=== PATIENT | female | born 1975 | race Two or more races ===

== ENCOUNTER 2024-02-07 08:55 | Day surgery (SDC) | payer MEDICAID, SELFPAY ==
[2024-02-06 14:53] VITALS: BMI 45.5
[2024-02-07] VITALS (9 sets, daily range): BP systolic 128–158; BP diastolic 79–102; PULSE 62–75; RESP 13–20; TEMP 36.2–36.6; O2SAT 95–100; BMI 47.2
[2024-02-07] MEDS: DiphenhydrAMINE INJ 50 MG/ML VIAL 25 MG IV (10:15)
[2024-02-07] MEDS: fentaNYL CIT INJ 50 mCg/ML AMP 2ML (ASD USE ONLY) IV (10:21)
[2024-02-07] MEDS: MIDAZOLAM INJ 1 MG/ML VIAL 2 ML (ASD USE ONLY) 2 MG IV (10:21)
== END 2024-02-07 11:30 | disposition home or self-care (01) ==
PROVIDERS: PCP Physician Assistant; Referring Provider Surgery; Visit Provider Surgery
PROC: 0DBE8ZX Excision of Large Intestine, Via Natural or Artificial Opening Endoscopic, Diagnostic (ICD-10-PCS; CPT 45380; principal; 2024-02-07 12:15)
DX: K57.31 Diverticulosis of large intestine without perforation or abscess with bleeding (principal)
CPT/HCPCS: 45378; 81025; J1200; J2250; J3010

== ENCOUNTER 2024-02-20 10:16 | Outpatient (AMB) | payer MEDICAID, SELFPAY ==
[2024-02-20 10:24] VITALS: BP 108/73; PULSE 80; RESP 18; TEMP 36; O2SAT 97; BMI 45.1
--- NOTE | 2024-02-20 10:24 | GSCOFFNT_ITS ---
Vital Signs - [facility] 02/20/24 10:24 Height 1.42 m Height Method Stated Weight 91.342 kg Weight Measurement Method Standing Scale BMI 45.1 BP 108/73 Blood Pressure Source Automatic Cuff Blood Pressure Location Right Upper Arm Position Sitting Respiration 18 Pulse 80 Pulse Source Monitor Temp 96.8 F Temp Source Temporal Artery Scan Pulse Oximetry (%) 97 Oxygen Delivery Method Room Air Med/Allergies Allergies & Medications Allergies No Known Allergies Allergy (Verified 02/20/24 10:24) Medication Reconciliation albuterol sulfate 90 mcg/actuation aerosol inhaler 2 puff inhalation Q4H PRN Shortness Of Breath Or Wheezing 02/07/24 [History Confirmed 02/20/24] atorvastatin 40 mg tablet 40 mg PO QDAY 02/07/24 [History Confirmed 02/20/24] losartan 100 mg-hydrochlorothiazide 25 mg tablet 1 tab PO QDAY 02/07/24 [History Confirmed 02/20/24] metformin 1,000 mg tablet,extended release 24hr (osmotic) 1,000 mg PO BID 02/07/24 [History Confirmed 02/20/24] MA Intake Visit Data Collection New Patient or Established: Established Patient (seen at [facility] within 3 years) Seen by Clinical Staff ONLY (RN/MA): No Reason for Visit:: COLONOSCOPY RESULTS Pain Present Currently: No Licensed Pesticide Applicator Required: Yes PCP or OBGYN visit in last 3 months: Yes Smoking Status Smoking Status: Never smoker Immunization / Flu Flu Vaccine in the Last 12 Months: No Flu Vaccine Exclusion Criteria: Refused by Patient Past Medical History Past Medical History NEUROLOGIC: Negative Seizures, Epilepsy or Head Trauma CARDIAC: Positive Hypercholesterolemia and Hypertension; Negative Congestive Heart Failure RESPIRATORY: Positive Asthma; Negative Chronic Obstructive Pulmonary Disease (COPD) GENITOURINARY: Negative Renal Disease ENT: Negative Head Trauma ENDOCRINE: Positive Diabetes Mellitus Type 2; Negative Diabetes Mellitus Type 1 PSYCHO/SOCIAL: Positive Depression OTHER HISTORY: Positive Chicken Pox; Negative Blood Transfusions, Blood Transfusion Reaction or Anesthesia Reactions Family History FAMILY HISTORY: Negative Family Cancer Surgical History SURGICAL: Positive Tubal Ligation and Section Social History SMOKING STATUS: Smoking status: Never smoker ALCOHOL: Alcohol Intake: Never HPI HPI Narrative Spoke to pt with in-person certified court/medical interpreter 48F s/p diagnostic colonoscopy 02/06 here for planned follow up. Pt reports feeling well overall although having some bloating after eating ROS Review of Systems Systems Reviewed: All systems reviewed, normal except as documented Objective/Exam General General Appearance: alert, cooperative and well groomed Resp Respiratory exam: Absent respiratory distress Results Colonoscopy report reviewed: poor prep, diverticulosis Assessment & Plan Diagnosis / Problem List (1) Encounter to discuss colonoscopy results: Status: Acute Assessment & Plan: 48F s/p diagnostic colonoscopy 02/06 here for planned follow up. I explained that due to inadequate prep she should undergo repeat colonoscopy within 5 years, and she should follow up with her PCP regarding bloating Office Procedures GNS Level of Care Nursing/Assessment Patient Status: Established Patient Nursing Assessment/Reassesment: Medication Reconciliation, Update PMH in EMR and Vital Signs Coordination of Care: Complex Care and Chronic Disease 1-5, Education Complex Pt/Fam, 1 Ins Authorization and Staff clarify orders Special Needs: Language special needs Established Patient Charge Established Patient Point Assignment: 100 Established Patient Point Charge: EP Level 2 (40-75) Patient Portal Questionaires Social History Tobacco History Smoking Status: Never smoker Alcohol History Alcohol Intake: Never Review of Systems Report any current symptoms Only answer those that you have currently: Past Medical History Past Medical History Have you ever been diagnosed with any of the following: Neurological Problems Seizures: No Epilepsy: No Head Trauma: No Cardiology Problems Hypercholesterolemia: Yes Congestive Heart Failure: No Hypertension: Yes Respiratory Problems Chronic Obstructive Pulmonary Disease (COPD): No Asthma: Yes Genital/Urinary Problems Renal Disease: No Endocrine Problems Diabetes Mellitus Type 1: No Diabetes Mellitus Type 2: Yes Psychologic Problems Depression: Yes Other Problems Blood Transfusions: No Blood Transfusion Reaction: No Anesthesia Reactions: No Chicken Pox: Yes
== END 2024-02-20 10:37 | disposition home or self-care (01) ==
LOC: HODSRG 10:16
PROVIDERS: PCP Physician Assistant; Referring Provider Physician Assistant; Supervising Provider Surgery; Visit Provider Surgery
DX: Z71.2 Person consulting for explanation of examination or test findings (principal)
CPT/HCPCS: 99212; G0463

== ENCOUNTER → 2024-09-21 | Outpatient (CLI) | payer MEDICAID, SELFPAY ==
--- NOTE | 2024-09-21 11:04 | XR_ITS ---
Examination: Knee, left , 3 views Technique: Knee AP, lateral, oblique 3 views Date and time of exam: September 21, 2024 1105 hours INDICATIONS: Left knee pain months. FINDINGS: Moderate narrowing medial joint space Mild osteoarthritis patellofemoral joint No fracture No dislocation IMPRESSION: Osteoarthritis as above
== END | disposition home or self-care (01) ==
LOC: CDIM 10:23
DX: M17.12 Unilateral primary osteoarthritis, left knee (principal)
CPT/HCPCS: 73562

== ENCOUNTER → 2024-11-14 | Outpatient (CLI) | payer MEDICAID, SELFPAY ==
--- NOTE | 2024-11-14 15:02 | XR_ITS ---
EXAMINATION: Cervical spine, 5 views Technique: Cervical spine AP, AP odontoid, lateral, bilateral obliques, 5 views Exam date and time: November 14, 2024 1522 hours INDICATIONS: Neck pain beginning several years ago. FINDINGS: Straightening normal cervical lordosis. No cervical fracture No cervical significant disc narrowing Minimal cervical spondylosis IMPRESSION: No cervical fracture or significant arthritic change No neural foraminal stenosis
== END | disposition home or self-care (01) ==
LOC: CDIM 14:26
DX: M54.2 Cervicalgia (principal)
CPT/HCPCS: 72050

== ENCOUNTER 2024-12-14 09:04 | Outpatient (AMB) | payer MEDICAID, SELFPAY ==
[2024-12-14 09:39] VITALS: BP 144/85; PULSE 78; RESP 18; TEMP 36.6; O2SAT 96; BMI 42.8
--- NOTE | 2024-12-14 09:39 | PD.ORTHCLVIS ---
Vital signs 12/14/24 09:39 Height 1.42 m Height Method Measured Weight 86.438 kg Weight Measurement Method Standing Scale BMI 42.8 BP 144/85 H Blood Pressure Source Automatic Cuff Blood Pressure Location Left Upper Arm Position Sitting Respiration 18 Pulse 78 Pulse Source Monitor Temp 97.8 F Temp Source Temporal Artery Scan Pulse Oximetry (%) 96 Oxygen Delivery Method Room Air Med/Allergies Allergies & Medications Allergies No Known Allergies Allergy (Verified 12/14/24 09:40) Medication Reconciliation albuterol sulfate 90 mcg/actuation aerosol inhaler 2 puff inhalation Q4H PRN Shortness Of Breath Or Wheezing 02/07/24 [History Confirmed 12/14/24] atorvastatin 40 mg tablet 40 mg PO QDAY 02/07/24 [History Confirmed 12/14/24] losartan 100 mg-hydrochlorothiazide 25 mg tablet 1 tab PO QDAY 02/07/24 [History Confirmed 12/14/24] metformin 1,000 mg tablet,extended release 24hr (osmotic) 1,000 mg PO BID 02/07/24 [History Confirmed 12/14/24] meloxicam 7.5 mg tablet 7.5 mg PO QDAY #45 tabs 12/14/24 [Rx] Exam Exam Patient is in no acute distress and is cooperative with the examination today. Breathing is nonlabored. In no respiratory distress. Bilateral extremities were evaluated and demonstrates sensation intact to light touch. Palpable pedal pulses are present. No significant edema is present. Bilateral hips were examined. The patient has no pain with log roll of the hips. Internal rotation to 30 degrees and external rotation to 30 degrees is painless. Negative FADIR. The left knee was examined. The left knee is in varus alignment. Range of motion from 0-115 degrees. Knee is stable to varus and valgus as well as AP translation with <5mm. Patient has a negative McMurrays. There is no pain with patellofemoral compression and no crepitus noted. The knee is tender to palpation medially. The right knee was also examined. The right knee is in varus alignment. Range of motion from 0-120 degrees. Knee is stable to varus and valgus as well as AP translation with <5mm. Patient has a negative McMurrays. There is no pain with patellofemoral compression and no crepitus noted. The knee is tender to palpation medially. Nonweightbearing x-rays of the left knee demonstrates joint space narrowing medially and at least moderate arthritis Assessment and Plan Problem List (1) Degenerative arthritis of knee, bilateral: Status: Acute Plan: ASSESSMENT AND PLAN 1. Bilateral knee pain: Chronic pain is reported in both knees, with the left knee being more bothersome. Only ibuprofen has been tried, with no history of injections or physical therapy. A weightbearing x-ray is necessary to confirm the presence of arthritis. Bilateral knee x-rays have been ordered to further investigate the cause of the pain. Meloxicam will be prescribed for pain management. If the x-rays confirm arthritis, injections may be considered at the next visit. The patient was informed about the potential side effects of meloxicam, including gastrointestinal issues, and was advised to monitor for any adverse reactions. The importance of follow-up to review x-ray results and discuss further treatment options was emphasized. Office Procedures GNS Level of Care Nursing/Assessment Patient Status: Established Patient Nursing Assessment/Reassesment: Medication Reconciliation, Update PMH in EMR and Vital Signs Coordination of Care: Complex Care and Chronic Disease 1-5, Education Complex Pt/Fam, Consent,records obtained, informed consent, Results/Orders obtained and Staff clarify orders Established Patient Charge Established Patient Point Assignment: 95 Established Patient Point Charge: EP Level 3 (80-115) MA Intake Visit Data Collection New Patient or Established: Established Patient (seen at [facility] within 3 years) Reason for Visit:: BILATERAL KNEE PAIN F/U Seen by Clinical Staff ONLY (RN/MA): No Tnt Line Supervisor Required: Yes PCP or OBGYN visit in last 3 months: Yes Hx Now: No Do You Feel Safe at Home: Yes Authorities Contacted: N/A Questionairres Past Medical History Past Medical History Have you ever been diagnosed with any of the following: Neurological Problems Seizures: No Epilepsy: No Head Trauma: No Cardiology Problems Hypercholesterolemia: Yes Congestive Heart Failure: No Hypertension: Yes Respiratory Problems Chronic Obstructive Pulmonary Disease (COPD): No Asthma: Yes Genital/Urinary Problems Renal Disease: No Endocrine Problems Diabetes Mellitus Type 1: No Diabetes Mellitus Type 2: Yes Psychologic Problems Depression: Yes Other Problems Blood Transfusions: No Blood Transfusion Reaction: No Anesthesia Reactions: No Chicken Pox: Yes Subjective Visit Visit for: follow up visit and knee Immunization / Flu Flu Vaccine in the Last 12 Months: Yes Flu Vaccine Exclusion Criteria: Already Received History of Present Illness Chief complaint: BILATERAL KNEE PAIN F/U HISTORY OF PRESENT ILLNESS I, Tha Rell, have obtained verbal consent from the patient, to be recorded during this encounter which may include, but not limited to, medical history, examination, treatment plans, and relevant health information.? Patient was informed that recording will be read and reviewed by myself before inclusion in the medical chart. The patient is a 48-year-old female who presents for evaluation of bilateral knee pain. She is accompanied by an interpreter and translator. She has been experiencing persistent discomfort in her left knee. She also reports similar symptoms in her right knee. She has not sought relief through injections or physical therapy. Her current management strategy involves the use of ibuprofen. Personal History Red flag PMH: none Pain Pain level (0-10): 6 Pain location: anterior Pain timing: increases with activity Associated signs & symptoms: other (specify) (POPPING) Ambulatory data Ambulatory device: none Treatments Improvement with previous injections: No Improvement with PT: No Improvement with NSAIDS: no Review of Systems Review of Systems: All systems negative unless otherwise noted in HPI.
== END 2024-12-14 09:42 | disposition home or self-care (01) ==
PROVIDERS: Supervising Provider Orthopaedic Surgery Adult Reconstructive Orthopaedic Surgery; Visit Provider Orthopaedic Surgery Adult Reconstructive Orthopaedic Surgery
DX: M25.562 Pain in left knee (principal); M25.561 Pain in right knee; I10 Essential (primary) hypertension; M17.0 Bilateral primary osteoarthritis of knee; E11.9 Type 2 diabetes mellitus without complications; Z79.84 Long term (current) use of oral hypoglycemic drugs
CPT/HCPCS: 99213; G0463

== ENCOUNTER → 2024-12-28 | Outpatient (CLI) | payer MEDICAID, SELFPAY ==
--- NOTE | 2024-12-28 08:46 | XR_ITS ---
EXAMINATION: Bilateral knees 2 views Right lateral knee left lateral knee 2 views Bilateral [place] single view TECHNIQUE: Bilateral knees AP single view, bilateral PA knees single view flexion Standing right lateral knee left lateral knee 2 views Bilateral axial knee single view total 5 views Date and time: December 28, 2024, 0917 hours INDICATIONS: Bilateral knee pain beginning 2 years ago. FINDINGS: Moderate to advanced osteoarthritis medial joint space right knee Moderate osteoarthritis right patellofemoral joint No fracture Moderate narrowing medial joint space left knee Moderate osteoarthritis left patellofemoral joint No fracture IMPRESSION: Moderate to advanced osteoarthritis medial joint space right knee Moderate osteoarthritis right patellofemoral joint Moderate narrowing medial joint space left knee Moderate osteoarthritis left patellofemoral joint
== END | disposition home or self-care (01) ==
LOC: CDIM 08:36
PROVIDERS: Referring Provider Orthopaedic Surgery Adult Reconstructive Orthopaedic Surgery; Visit Provider Orthopaedic Surgery Adult Reconstructive Orthopaedic Surgery
DX: M17.0 Bilateral primary osteoarthritis of knee (principal); M25.862 Other specified joint disorders, left knee
CPT/HCPCS: 73564

== ENCOUNTER 2025-01-11 10:24 | Outpatient (AMB) | payer MEDICAID, SELFPAY ==
--- NOTE | 2025-01-11 11:06 | ORTHONT_ITS ---
Vital signs 01/11/25 11:52 Height 1.42 m Height Method Stated Weight 87.26 kg Weight Measurement Method Standing Scale BMI 43.2 BP 146/85 H Blood Pressure Source Automatic Cuff Blood Pressure Location Left Upper Arm Position Sitting Respiration 19 Pulse 78 Pulse Source Monitor Temp 97.4 F Temp Source Temporal Artery Scan Pulse Oximetry (%) 96 Oxygen Delivery Method Room Air Med/Allergies Allergies & Medications Allergies No Known Allergies Allergy (Verified 01/11/25 11:52) Medication Reconciliation albuterol sulfate 90 mcg/actuation aerosol inhaler 2 puff inhalation Q4H PRN Shortness Of Breath Or Wheezing 02/07/24 [History Confirmed 01/11/25] atorvastatin 40 mg tablet 40 mg PO QDAY 02/07/24 [History Confirmed 01/11/25] losartan 100 mg-hydrochlorothiazide 25 mg tablet 1 tab PO QDAY 02/07/24 [History Confirmed 01/11/25] metformin 1,000 mg tablet,extended release 24hr (osmotic) 1,000 mg PO BID 02/07/24 [History Confirmed 01/11/25] meloxicam 7.5 mg tablet 7.5 mg PO QDAY #45 tabs 12/14/24 [Rx Confirmed 01/11/25] Exam Exam Patient is in no acute distress and is cooperative with the examination today. Breathing is nonlabored. In no respiratory distress. Bilateral extremities were evaluated and demonstrates sensation intact to light touch. Palpable pedal pulses are present. No significant edema is present. Bilateral hips were examined. The patient has no pain with log roll of the hips. Internal rotation to 30 degrees and external rotation to 30 degrees is painless. Negative FADIR. The left knee was examined. The left knee is in varus alignment. Range of motion from 0-115 degrees. Knee is stable to varus and valgus as well as AP translation with <5mm. Patient has a negative McMurrays. There is no pain with patellofemoral compression and no crepitus noted. The knee is tender to palpation medially. The right knee was also examined. The right knee is in varus alignment. Range of motion from 0-120 degrees. Knee is stable to varus and valgus as well as AP translation with <5mm. Patient has a negative McMurrays. There is no pain with patellofemoral compression and no crepitus noted. The knee is tender to palpation medially. Weightbearing x-rays of the left knee demonstrates moderate joint space narrowing medially Assessment and Plan Problem List (1) Degenerative arthritis of knee, bilateral: Status: Acute Plan: ASSESSMENT AND PLAN 1. Bilateral knee pain: Chronic pain is reported in both knees, with the left knee being more bothersome. Only ibuprofen has been tried, with no history of injections or physical therapy. Weightbearing x-rays demonstrate moderate arthritis of both knees. She has not had significant conservative treatment. We thus discussed bilateral knee injections today Meloxicam will be prescribed for pain management. Recommend knee cortisone injection as patient would like to proceed with conservative treatment at this time. The risks and benefits of the procedure were reviewed with the patient and patient gave verbal consent to continue with the procedure. Procedure: performed by Dr. Zacarias Using sterile technique the Right knee was thoroughly prepped with alcohol, and approximately 1 cc of Depo-Medrol 80mg/mL and 4 cc of 0.2% ropivacaine was injected without resistance into the medial tibial femoral joint space. The patient tolerated the procedure. Recommend knee cortisone injection as patient would like to proceed with conservative treatment at this time. The risks and benefits of the procedure were reviewed with the patient and patient gave verbal consent to continue with the procedure. Procedure: performed by Dr. Zacarias Using sterile technique the leftknee was thoroughly prepped with alcohol, and approximately 1 cc of Depo- Medrol 80mg/mL and 4 cc of 0.2% ropivacaine was injected without resistance into the medial tibial femoral joint space. The patient tolerated the procedure. Office Procedures GNS Level of Care Nursing/Assessment Patient Status: Established Patient Nursing Assessment/Reassesment: Medication Reconciliation, Update PMH in EMR and Vital Signs Coordination of Care: Complex Care and Chronic Disease 1-5, Education Complex Pt/Fam, Consent,records obtained, informed consent, Results/Orders obtained and Staff clarify orders Established Patient Charge Established Patient Point Assignment: 95 Established Patient Point Charge: EP Level 3 (80-115) Surgical Proc/IM SQ injection Minor Surgical Procedure: Yes (BL KNEE INJECTION) Medication Given Medication Given Medication Given: Yes Documented Dose Given: 2 Route: Infiitration Medication Given Medication Given Medication Given: Yes Documented Dose Given: 8 Route: Infiitration Office Meds methylprednisolone acetate 80 mg/mL suspension for injection Performing Provider: Tha Zacarias MD Performing Location: [facility] Administered by: Tha Zacarias MD on 01/11/25 11:50 Dose Route Admin Location Dispensed Lot Number Expiration Date Pack age [facility] Floor Molder 160 mg intra-articular KNEE 2 mL [id number] 09/19/26 [address]-6 [id number] [employer] ropivacaine (PF) 2 mg/mL (0.2 %) injection solution Performing Provider: Tha Zacarias MD Performing Location: [facility] Administered by: Tha Zacarias MD on 01/11/25 11:50 Dose Route Admin Location Dispensed Lot Number Expiration Date Pack age [facility] [place] Floor Molder 40 mL Infiltration KNEE 40 mL [id number] 03/22/27 73624-354-41 [id number] [facility] Intake Visit Data Collection New Patient or Established: Established Patient (seen at [facility] within 3 years) Reason for Visit:: BL KNEE INJECTION Rehab Department Manager Required: Yes PCP or OBGYN visit in last 3 months: Yes Hx Now: No Do You Feel Safe at Home: Yes Authorities Contacted: N/A Questionairres Past Medical History Past Medical History Have you ever been diagnosed with any of the following: Neurological Problems Seizures: No Epilepsy: No Head Trauma: No Cardiology Problems Hypercholesterolemia: Yes Congestive Heart Failure: No Hypertension: Yes Respiratory Problems Chronic Obstructive Pulmonary Disease (COPD): No Asthma: Yes Genital/Urinary Problems Renal Disease: No Endocrine Problems Diabetes Mellitus Type 1: No Diabetes Mellitus Type 2: Yes Psychologic Problems Depression: Yes Other Problems Blood Transfusions: No Blood Transfusion Reaction: No Anesthesia Reactions: No Chicken Pox: Yes Subjective Visit Visit for: follow up visit and knee Immunization / Flu Flu Vaccine in the Last 12 Months: Yes Flu Vaccine Exclusion Criteria: Already Received History of Present Illness Chief complaint: BILATERAL KNEE PAIN F/U HISTORY OF PRESENT ILLNESS I, Tha Zacarias, have obtained verbal consent from the patient, to be recorded during this encounter which may include, but not limited to, medical history, examination, treatment plans, and relevant health information.? Patient was informed that recording will be read and reviewed by myself before inclusion in the medical chart. The patient is a 48-year-old female who presents for evaluation of bilateral knee pain. She is accompanied by an roll hauler. She has been experiencing persistent discomfort in her left knee. She also reports similar symptoms in her right knee. She has not sought relief through injections or physical therapy. Her current management strategy involves the use of ibuprofen. Personal History Red flag PMH: none Pain Pain level (0-10): 6 Pain location: anterior Pain timing: increases with activity Associated signs & symptoms: other (specify) (POPPING) Ambulatory data Ambulatory device: none Treatments Improvement with previous injections: No Improvement with PT: No Improvement with NSAIDS: no Review of Systems Review of Systems: All systems negative unless otherwise noted in HPI.
[2025-01-11 11:52] VITALS: BP 146/85; PULSE 78; RESP 19; TEMP 36.3; O2SAT 96; BMI 43.2
== END 2025-01-11 11:15 | disposition home or self-care (01) ==
LOC: HODSRG 10:24
PROVIDERS: Supervising Provider Orthopaedic Surgery Adult Reconstructive Orthopaedic Surgery; Visit Provider Orthopaedic Surgery Adult Reconstructive Orthopaedic Surgery
DX: M17.0 Bilateral primary osteoarthritis of knee (principal); M25.562 Pain in left knee; M25.561 Pain in right knee; I10 Essential (primary) hypertension; E11.9 Type 2 diabetes mellitus without complications; Z79.84 Long term (current) use of oral hypoglycemic drugs
CPT/HCPCS: 20610; 99213; J1010; J2795; G0463